=== PATIENT | female | born 1975 | race African-American/Black ===

== ENCOUNTER 2025-03-12 15:04 | Emergency (ER) | payer BC, SELFPAY ==
--- OUTSIDE RECORDS SUMMARY | 2020-04-30 05:00 | XMS_ITS | Continuity of Care Document ---
Author Organization [facility] Address [address] [place] [address] Phone Care Team Providers Care Electrical Discharge Machine Operator Name Role Phone North Tomlinson MD Unavailable Unavailable Procedures Procedure Date TISSUE EXAM BY PATHOLOGIST COLONOSCOPY, REMOVAL SNARE TECH 020 Advance Directives Directive Yes / No Effective Date File Name No Information Encounters Encounter Description Practice Location Reason(s) For Visit Diagnoses Date Provider Providers Copied on Encounter [facility], [address], [place], [place], [id number], tel:[phone] [facility] No Information Bushra Kat. [address] [place] [address], [id number] , . tel:[phone] [facility], [address], [place], [place], [id number], tel:[phone] [facility] No Information Bushra Kat. [address] [place], [place], [id number] , . tel:[phone] Referring Provider: Florin Red [address] [address], [place], [address]. tel:[phone] [facility], [address], [place], [place], [id number], tel:[phone] [facility] [place] No Information Bushra Kat. [address] [place] [address], [id number] , . tel:[phone] Referring Provider: Wally Red5 [facility] [address], [place], [address]. tel:[phone] Family History Family Member Type Diagnosis Age At Onset No Information Payers Payer name Insurance type Covered green party ID Authoriza tion(s) No Information Social History [...]
--- NOTE | ~2025-03-12 | XR_ITS ---
EXAMINATION: XR chest 1V portable COMPARISON: No comparisons available. HISTORY: HIGH BLOOD PRESSURE FINDINGS: The lungs are clear, no effusion. No pneumothorax. Heart is normal size. Mediastinal and hilar contours are within normal limits. Bony thorax no acute abnormality. Miscellaneous: None Impression: No acute cardiopulmonary abnormality. Reviewed, dictated and finalized at location A. Impression: No acute cardiopulmonary abnormality.
--- OUTSIDE RECORDS SUMMARY | 2025-03-12 09:30 | XMS_ITS | Encounter Summary ---
Author Organization [facility] Address [address] [place] [address] Care Team Providers Care Wall Washer Name Role Phone Virginia Carlson MD Primary Care Provider [phone] Reason for Referral * Consultation (Routine) - Pending Review Specialty Diagnoses / Procedures Referred By Contheidi t Referred To Contact Cardiology Diagnoses Abnormal EKG Sofy Titus NP [address] [place] [address] Phone: tel: [facility] at [address] [place] [address] Phone: tel: fax: Referral ID Status Reason Start Date Expiration Date Visits Requested Visits Authorized [id number] Pending Review Specialty Services Required 03/12/2025 04/11/2026 1 1 Question Answer Please select the performing region: [facility] [[id number]] Please select the performing department: [facility] [[id number]] # of visits: 1 Reason for Visit * Reason Comments Hypertension Would like to discus s switching dosage. BP highest has been around 177/106. Started running higher around Friday. 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 Encounter Details Date Type Department Care Team (Late Contact Info) Description 03/12/2025 9:30 AM CDT Office Visit [facility] [place] [id number] Sofy Titus NP [address] [facility] [address] [place] [address] Elevated blood pressure reading in office with diagnosis of hypertension (Primary Dx); Other chest pain; Abnormal EKG Social History Tobacco Use Types Packs/Day Years Used Date Smoking Tobacco: Never Smokeless Tobacco: Never Tobacco Cessation:Counseling Given: Not Answered Alcohol Use Standard Drinks/Week Comments No 0 (1 standard drink = 0.6 oz pur e alcohol) AUDIT-C Answer Date Recorded Frequency of Alcohol Consumption Not on file 12/27/2022 Q2: How many drinks containi ng alcohol do you have on a typical day when you are drinking? 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 [employer] Not on file Not o n file Not on file documented as of this encounter Last Filed Vital Signs Vital Sign Reading Time Taken Comments Blood Pressure 152/82 03/12/2025 9:25 AM CDT Pulse 92 03/12/2025 9:25 AM CDT Temperature 36.6 C (97.9 F) 03/12/2025 9:25 AM CDT Respiratory Rate 18 03/12/2025 9:25 AM CDT Oxygen Saturation 96% 03/12/2025 9:25 AM CDT Inhaled Oxygen Concentration - - Weight 121.5 kg (267 lb 12.8 oz) 03/12/2025 9:25 AM CDT Height 162.6 cm (5' 4) 03/12/2025 9:25 AM CDT Body Mass Index 45.97 03/12/2025 9:25 AM CDT documented in this encounter Patient Instructions * Patient Instructions* Sofy Titus NP - 03/12/2025 9:30 AM CDT --Would recommend ER for further cardiac evaluation --Discussed with patient that at any time her symptoms worsen would recommend 911 or headed to the nearest emergency room --Referral to cardiology placed --Discussed with patient to monitor her blood pressure and to write these blood pressures down to show to her primary care doctor documented in this encounter Plan of Treatment Scheduled Referrals Name Type Priority Associated Diagnoses Order Schedule Ambulatory referral to Cardiology Outpatient Referral Routine Abnormal EKG Expected: 05/12/2025 (Approximate), Expires: 03/12/2026 documented as of this encounter Procedures Procedure Name Priority Date/Time Associated Diagnosis Comments ECG 12-LEAD Routine 03/12/2025 9:44 AM CDT Other chest pain documented in this encounter Results * ECG 12 lead (03/12/2025 9:44 AM CDT) Sofy Titus HAND ALTERATIONS SEAMSTRESS ECG ORDERABLES Final Result documented in this encounter Visit Diagnoses Diagnosis Elevated blood pressure reading in office with diagnosis of hypertension- Primary Other chest pain Abnormal EKG Nonspecific abnormal electrocardiogram (ECG) (EKG) documented in this encounter Discontinued Medications Medication Sig Discontinue Reason Start Date End Da te diclofenac sodium (VOLTAREN) 1 % gel Apply 2 g topically 4 (four) times a day Patient Reported 07/07/2024 03/12/2025 documented as of this encounter Care Teams Wall Washer Relationship Specialty Start Date End Date Virginia Carlson MD [address] [place] [address], [place] [address] PCP - General 09/20/16 documented as of this encounter
[2025-03-12 15:09] VITALS: BP 152/94; PULSE 79; RESP 16; TEMP 36.4; O2SAT 100
[2025-03-12 19:25] VITALS: PULSE 70; RESP 16; O2SAT 100
[2025-03-12 19:31] VITALS: BP 166/96; PULSE 72; RESP 17; O2SAT 100
--- NOTE | 2025-03-12 19:33 | ECG_ITS ---
Test Date: 2025-03-12 20:03:55 Measurements Intervals [place] Rate: 67 P: 44 NH: 178 QRS: -9 QRSD: 90 T: 30 QT: 384 QTc: 406 Interpretive Statements SINUS RHYTHM MODERATE VOLTAGE CRITERIA FOR LVH, CONSIDER NORMAL VARIANT [MEETS CRITERIA IN ONE OF: R(aVL), S(V1), R(V5), R(V5/V6)+S(V1)] BORDERLINE ECG No previous ECG available for comparison Electronically Signed On 03-13-2025 08:21:26 CDT by Prosper Coles M.D.
--- OUTSIDE RECORDS SUMMARY | 2025-03-12 19:47 | XMS_ITS | Clinical Summary ---
Author Organization [facility] Address [address] [place] [address] Phone Care Team Providers Care Biological Inspector Name Role Phone Virginia Carlson MD Primary Care Provider [phone] Allergies Active Allergy Reactions Criticality Noted Date Comments Penicillins Hives,Itching,Nausea and Vomiting High 08/29/2017 Reaction: Nausea, Vomiting, , Medications labetalol HCl (LABETALOL ORAL) Take 200 mg by mouth 2 times daily. Active rosuvastatin calcium (ROSUVASTATIN ORAL) Take by mouth daily. Active olmesartan (BENICAR) 20 mg tablet Take 20 mg by mouth daily. Active cholecalciferol, Vitamin D3, 125 mcg (5,000 unit) Capsule Take 5,000 Units by mouth 2 times daily. Active Active Problems No known active problems Family History Medical History Relation Name Comments Hypertension Brother Hypertension Mother Hypertension Sister Relation Name Status Comments Brother Mother Sister Social History Tobacco Use Types Packs/Day Years Used Date Smoking Tobacco: Never Smokeless Tobacco: Never Tobacco Cessation:Counseling Given: Not Answered Alcohol Use Standard Drinks/Week Comments Never 0 (1 standard drink = 0.6 oz pur e alcohol) Comments Unknown Sex and Gender Information Value Date Recorded Sex Assigned at Not on file Legal Sex Female 2:12 PM CDT Gender Identity Not on file Sexual Orientation Not on file Last Filed Vital Signs Vital Sign Reading Time Taken Comments Blood Pressure 120/82 05/27/2022 1:09 PM [employer] Pulse - - Temperature - - Respiratory Rate - - Oxygen Saturation - - Inhaled Oxygen Concentration - - Weight 118.8 kg (261 lb 12.8 oz) 05/27/2022 1:09 PM [employer] Height 160 cm (5' 3) 05/27/2022 1:09 PM [employer] Body Mass Index 46.38 05/27/2022 1:09 PM [employer] Plan of Treatment Health Maintenance Due Date Last Done Comments HEPATITIS B VACCINES (1 of 3 - 19+ 3-dose series) 1992 HPV/Cotest (21-29) 1994 CERVICAL CANCER SCREENING 2003 HPV/Cotest (30-65) 2003 PAP SMEAR 2003 COLORECTAL SCREENING 2018 Colorectal Cancer Screening 2018 FIT-DNA Q 3 years 2018 FIT/FOBT Q 1 year 2018 Flex Sig/CT Colonography Q 5 years 2018 BREAST CANCER SCREENING 08/09/2020 08/09/19 20, 01/17/2018, 12/16/2014 ZOSTER VACCINE (1 of 2) 2023 INFLUENZA VACCINE (#1) 2025 COVID-19 Vaccine (2024- season) 2025, 09/11/2020 DTAP/TDAP/TD VACCINES (3 - T d or Tdap) 03/04/2029 03/04/2019, 01/27/2004 Insurance [facility] BLUE ACCESS CHOICE Care Teams Biological Inspector Relationship Specialty Start Date End Date Virginia Carlson MD [facility] [facility] [address], [place] [address] PCP - General Internal Medicine 01/21/22
--- OUTSIDE RECORDS SUMMARY | 2025-03-12 19:47 | XMS_ITS | Encounter Summary ---
Author Organization [facility] Address [address] [place] [address] Care Team Providers Care Culture Room Worker Name Role Phone Virginia Carlson MD Primary Care Provider [phone] Reason for Visit * Reason Onset Date Comments Hypertension 03/12/2025 Encounter Details Date Type Department Care Team (Late st Contact Info) Description 03/12/2025 Nurse Triage [facility] Primary Care at [facility] - [address] [place] [address] Virginia Carlson MD [address] [place] [address] Social History Tobacco Use Types Packs/Day Years Used Date Smoking Tobacco: Never Smokeless Tobacco: Never Alcohol Use Standard Drinks/Week Comments No 0 [...] on file Legal Sex Female 11:57 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 Pt states she has been taking the Olmesartan 40 mg daily inthe morning and Labetalol 100 mg twice daily, as prescribed, drinking water, jesenia tea, no added salt to foods - denies CP, SOB, dizziness, palpitations, visual changes, pain/numbness/tingling in arms or face, speech difficulty, swelling of extremities. Calling for advice. Pt is alert, appropriatein conversation, does not sound to be in distress over the phone. microsoft crm developer briefly reviewed pt's chart, office visit note from 03/07/25, med list - scheduled appt for pt to be seen at in [place] in the morning at 0930, home care instructions given. Pt voices understanding, agrees with plans, states appreciation of microsoft crm developer assistance. Advised to call back with any further questions, concerns, worsening symptoms. Disposition See Physician Within 24 Hours Reason for Disposition Systolic BP >= 180 OR Diastolic >= 110 Protocols Used Blood Pressure - Njuk-Mnasb-GM * Telephone Encounter - Zofia Latham RN - 03/12/2025 12:08 AM CDT Regarding: Elevated blood pressure ----- Message from Modesta Coronado sent at 03/12/2025 12:05 AM CDT ----- Patient calling about elevated blood pressure that has been present for 2 to 3 days. Current 160/106 in right arm, 177/99 in left arm. Has questions. documented in this encounter Plan of Treatment Not on file documented as of this encounter Visit Diagnoses Not on filedocumented in this encounter Care Teams Culture Room Worker Relationship Specialty Start Date End Date Virginia Carlson MD [address] [address] PCP - General 09/20/16 documented as of this encounter
--- OUTSIDE RECORDS SUMMARY | 2025-03-12 19:47 | XMS_ITS | Clinical Summary ---
Author Organization [facility] Address [address] [place] [address] Phone Care Team Providers Care Towboat Operator Name Role Phone Virginia Carlson MD Primary Care Provider [phone] Allergies Active Allergy Reactions Criticality Noted Date Comments Penicillins Hives 09/11/2017 Medications labetalol (NORMODYNE) 200 MG Tablet Take 200 mg by mouth 2 times daily. Active METFORMIN HCL ER, MOD, PO Take 750 mg by mouth 2 times daily (with meals). This RX is for Metformin SR. Active Aspirin 81 MG Tablet Take 81 mg by mouth daily. Active Vitamin B-6 (PYRIDOXINE) 100 MG Tablet Take by mouth. A ctive Vit-Fe Fumarate-FA ( VITAMIN PO) Take by mouth. Act juanito clindamycin (CLEOCIN) 150 MG Capsule Take 150 mg by mouth every 8 hours. Active oxyCODONE-aceta minophen (PERCOCET) 5-325 MG Tablet Take 1 Tab by mouth every 4 hours as needed for Pain. Active HYDROcodone-dhiraj taminophen (NORCO) 5-325 MG Tablet Take 1 Tab by mouth every 4 hours as needed for Pain. Active Social History Tobacco Use Types Packs/Day Years Used Date Smoking Tobacco: Never Smokeless Tobacco: Never Alcohol Use Standard Drinks/Week Comments No 0 (1 standard drink = 0.6 oz pur e alcohol) Comments No Sex and Gender Information Value Date Recorded Sex Assigned at Not on file Legal Sex Female 8:56 PM CDT Gender Identity Not on file Sexual Orientation Not on file Last Filed Vital Signs Vital Sign Reading Time Taken Comments Blood Pressure 122/75 09/11/2017 10:29 PM CDT Pulse 84 09/11/2017 10:29 PM CDT Temperature 36.4 C (97.6 F) 09/11/2017 8:58 PM CDT Respiratory Rate 18 09/11/2017 10:29 PM CDT Oxygen Saturation 100% 09/11/2017 10:29 PM CDT Inhaled Oxygen Concentration - - Weight 118.4 kg (261 lb) 09/11/2017 8:58 PM CDT Height 160 cm (5' 3) 09/11/2017 8:58 PM CDT Body Mass Index 46.23 09/11/2017 8:58 PM CDT Plan of Treatment Not on file Insurance [facility] Care Teams Towboat Operator Relationship Specialty Start Date End Date Virginia Carlson MD [facility] [address] [id number] PCP - General Internal Medicine 09/11/17
--- OUTSIDE RECORDS SUMMARY | 2025-03-12 19:47 | XMS_ITS | Clinical Summary ---
Author Organization [facility] Address [address] [place] [address] Care Team Providers Care Title [employer] Name Role Phone Virginia Carlson MD Primary Care Provider [phone] Allergies Active Allergy Reactions Criticality Noted Date Comments Penicillins Nausea only,Vomiting,Hives,Itch ing,Nausea And Vomiting High 08/29/2017 Reaction: Nausea, Vomiting, , Reaction: Nausea, Vomiting, , Medications cholecalcifero l (VITAMIN D-3) 5,000 unit capsule Take 1 capsule (5,000 Units total) by mouth 2 (two) times a day Active atorvastatin (LIPITOR) 20 mg tablet TAKE 1 TABLET(20 MG) BY MOUTH DAILY 90 tablet 1 01/11/20 25 Active olmesartan (BENICAR) 40 mg tablet TAKE 1 TABLET(40 MG) BY MOUTH DAILY 90 tablet 1 02/23/20 25 Active labetaloL (NORMODYNE,TRA NDATE) 100 mg tablet Take 1 tablet (100 mg total) by mouth 2 (two) times a day 60 tablet 1 03/08/20 25 Active olmesartan (BENICAR) 40 mg tablet Take 1 tablet (40 mg total) by mouth daily 90 tablet 1 02/18/20 24 025 Discontinued diclofenac sodium (VOLTAREN) 1 % gel Apply 2 g topically 4 (four) times a day 150 g 1 07/07/19 25 025 Discontinued(Miguel kirk Reported) labetaloL (NORMODYNE,TRA NDATE) 100 mg tablet Take 1 tablet (100 mg total) by mouth 2 (two) times a day 60 tablet 1 01/12/20 25 025 Discontinued(Re order) Active Problems Problem Noted Date Diagnosed Date Skin cyst 10/27/2024 Assessment & Plan (10/27/2024 3:36 PM CDT): This is the most likely cause for the skin lesion behind her right ear. Okay to watch over time since has benign characteristics. Discussed the ABCD findings of skin cancers. Discussed possible evaluation with ultrasound or CT scan imaging. Discussed possible referral to a plastic surgeon for removal. Call if worse or persistent symptoms. Left arm pain 10/27/2024 Assessment & Plan (10/27/2024 3:34 PM CDT): Most consistent with soreness in the muscles. Advised treatment with topical creams as needed. Call if worse or persistent symptoms. Morbid obesity with BMI of 40.0-44.9, adult 09/22 Assessment & Plan (03/09/2025 5:35 AM CDT): Patient to decreased intake and increase activity. Assessment & Plan (10/27/2024 4:40 PM CDT): Patient with comorbid hypertensive kidney disease, mixed hyperlipidemia, prediabetes, neuropathy. Encouraged healthy diet and exercise. Assessment & Plan (10/17/2024 4:12 PM CDT): Patient has had decreased intake and increase activity. Other specified anemias 10/17/2024 Assessment & Plan (10/17/2024 4:26 PM CDT): Will continue to monitor Chronic pain of right thumb 08/31/2024 Assessment & Plan (10/17/2024 4:31 PM CDT): Patient to use diclofenac 1% gel BID PRN Assessment & Plan (08/31/2024 8:52 AM CDT): Will order an xray of the right thumb to rule out fracture. Patient to take tylenol for pain as needed Patient may use a cold pack ever 2-3 hours for soreness. Rest and avoid activity such as bending, twisting or lifting. Support your thumb with compression while sleeping to prevent worsening pain. Low mean corpuscular volume (MCV) 09/09/2023 Assessment & Plan (07/10/2024 2:21 PM CAR UNLOADER): Will continue to monitor. No iron at this time. Prediabetes 07/21/2022 Assessment & Plan (03/09/2025 5:38 AM CDT): Decrease intake of pasta, potatoes, breads, rice and sweets Assessment & Plan (10/27/2024 3:35 PM CDT): You are in the prediabetes range. Important to work on diet and exercise to prevent progression to diabetes. Reviewed recent hemoglobin A1c testing at 5.8%. Assessment & Plan (10/17/2024 4:24 PM CDT): Continue to decrease intake of pasta, potatoes, breads, rice and sweets Assessment & Plan (07/10/2024 2:18 PM CAR UNLOADER): Decrease intake of pasta, potatoes, breads, rice and sweets Assessment & Plan (05/21/2023 9:46 PM CAR UNLOADER): Decrease intake of pasta, potatoes, breads, rice and sweets Assessment & Plan (12/28/2022 3:14 PM CDT): Decrease intake of pasta, potatoes, breads, rice and sweets Assessment & Plan (07/21/2022 9:02 PM CAR UNLOADER): Decrease intake of pasta, potatoes, breads, rice and sweets Infected sebaceous cyst of skin 07/07/2021 Assessment & Plan (07/07/2021 9:53 PM CAR UNLOADER): Continue Bactrim DS twice a day History of vitamin D deficiency 07/07/2021 Assessment & Plan (07/07/2021 10:07 PM CAR UNLOADER): Will check Vitamin d level Neuropathy 07/07/2021 Assessment & Plan (12/28/2022 3:13 PM CDT): Will refer to neurology for right foot numbness and pelvic numbness. Patient may need repeat MRI Assessment & Plan (07/07/2021 10:05 PM CAR UNLOADER): Continue with EMG/Nerve conduction study Internal nasal lesion 11/09/2020 Assessment & Plan (11/09/2020 3:52 PM CDT): Patient has small lesion in right nostril that is tender. Will refer patient to Dr. Colvin, ENT, for further evaluation and management. Will monitor. Stage 3a chronic kidney disease 12/18/2019 Assessment & Plan (03/09/2025 5:38 AM CDT): Avoid taking NSAIDs -Ibuprofen, Aleve and Naprosyn. Also avoid being dehydrated Assessment & Plan (10/27/2024 3:36 PM CDT): You have decreased renal function that is called chronic kidney disease. This is ok for your age and medical conditions and will be followed over time with lab testing. Avoid anti-inflammatory meds called NSAIDs such as ibuprofen/aleve since these can affect the kidneys. OK to take Tylenol/acetaminophen as needed. Assessment & Plan (10/17/2024 4:25 PM CDT): Patient to avoid taking NSAIDs -Ibuprofen, Aleve and Naprosyn. Also avoid being dehydrated Assessment & Plan (07/10/2024 2:06 PM CAR UNLOADER): Avoid taking NSAIDs -Ibuprofen, Aleve and Naprosyn. Also avoid being dehydrated Assessment & Plan (05/21/2023 9:50 PM CAR UNLOADER): Avoid taking NSAIDs -Ibuprofen, Aleve and Naprosyn. Also avoid being dehydrated Assessment & Plan (07/13/2020 5:31 PM CAR UNLOADER): Last creatinine 1.15 and eGFR 57 on 03/29/2020. Continue with current treatment regimen; avoid NSAIDs and stay hydrated. Continue with good lipid and BP control. Will monitor. Assessment & Plan (04/30/2020 2:17 PM CAR UNLOADER): Last creatinine 07/19 and eGFR 51 on 07/23/2019. Continue with current treatment regimen. Continue with good BP control. Will monitor. Assessment & Plan (12/18/2019 12:40 PM CDT): Talked to patient about decreasing intake of NSAIDS and increase hydration Vitamin D deficiency 12/17/2019 Assessment & Plan (07/10/2024 2:35 PM CAR UNLOADER): Will have patient to check vitamin d level Assessment & Plan (05/21/2023 9:49 PM CAR UNLOADER): Will check Vitamin d level Assessment & Plan (12/28/2022 3:14 PM CDT): Will check Vitamin d level Assessment & Plan (03/09/2020 5:36 PM CDT): Last Vitamin D level 16 on 11/23/18. Continue treatment with Vitamin D supplements. Will monitor. Assessment & Plan (12/17/2019 7:30 AM CDT): Will restart vitamin d. Will also check vitamin d level Plantar fasciitis 12/17/2019 Assessment & Plan (03/09/2020 5:36 PM CDT): Stable. Continue current treatment - daily home exercises. Notify clinic for any new or worsening symptoms. Will continue to monitor. Assessment & Plan (12/17/2019 7:32 AM CDT): Patient to perform exercises daily Abnormal Pap smear of cervix 06/05/2019 Overview (09/09/2023): 2019 endometrial cells on Pap. EMB done and benign. 2021: Pap and HPV both negative. Assessment & Plan (06/05/2019 7:11 AM CAR UNLOADER): Follow up with MAIL ROOM Mixed hyperlipidemia 06/03/2019 Assessment & Plan (10/27/2024 3:35 PM CDT): Up-to-date with lipid lab monitoring. Continue atorvastatin. Discussed that the timing of this medicine does not matter when it is taken during the day. Assessment & Plan (10/17/2024 4:20 PM CDT): Continue Rosuvastatin 20mg every day Assessment & Plan (07/10/2024 2:10 PM CAR UNLOADER): Continue Rosuvastatin 20mg every day Assessment & Plan (05/21/2023 9:45 PM CAR UNLOADER): Continue Rosuvastatin 20mg QHS Assessment & Plan (12/28/2022 2:59 PM CDT): Continue Rosuvastatin 20mg QHS Assessment & Plan (07/21/2022 8:46 PM CAR UNLOADER): Continue Rosuvastatin 20mg a day Assessment & Plan (07/07/2021 9:50 PM CAR UNLOADER): Continue Rosuvastatin 20mg a day Assessment & Plan (11/09/2020 1:37 PM CDT): Continue current treatment - rosuvastatin 20 mg daily. Encouraged a low cholesterol diet and regular cardiovascular exercise as tolerated. Will continue to monitor. Assessment & Plan (07/13/2020 10:54 AM CAR UNLOADER): Continue current treatment - rosuvastatin 20 mg daily. Encouraged a low cholesterol diet and regular cardiovascular exercise as tolerated. Will continue to monitor. Assessment & Plan (03/09/2020 5:41 PM CDT): Continue current treatment - Crestor 20 mg qhs. Encouraged a low cholesterol diet and regular cardiovascular exercise as tolerated. Will continue to monitor. Assessment & Plan (12/17/2019 7:31 AM CDT): Continue current therapy Assessment & Plan (06/03/2019 6:21 PM CAR UNLOADER): Start Crestor 20 mg. Encouraged a low cholesterol diet and regular cardiovascular exercise as tolerated. Will recheck labs. Will continue to monitor. PCOS (polycystic ovarian syndrome) 06/03/2019 Assessment & Plan (06/03/2019 2:00 PM CAR UNLOADER): Stable. Continue current management. Continue to follow with Dr. Holland. Hypertension, renal disease, stage 1-4 or unspecified chronic kidney disease 06/03/2019 Assessment & Plan (10/27/2024 3:34 PM CDT): Discussed blood pressure goal of <130/80. Try taking the olmesartan in the evening and labetalol twice daily for best 24 hour blood pressure control. Call if blood pressure stays greater than 130/80. Assessment & Plan (10/17/2024 4:22 PM CDT): Repeat blood pressure was elevated. Patient does not want to adjust medication she wants to continue labetalol 100 mg twice a day. She is going to take medicine daily. We will continue olmesartan 40 mg once a day. Assessment & Plan (07/10/2024 2:13 PM CAR UNLOADER): Take Labetalol 100mg one tablet BID and Olmesartan 40mg every day. Repeat was 130/86. Will adjust medication at next appointment if still elevated. Assessment & Plan (05/21/2023 9:44 PM CAR UNLOADER): Take Labetalol 100mg one tablet BID Assessment & Plan (12/28/2022 2:58 PM CDT): Continue Labetalol 100mg one tablet BID and Olmesartan 40mg a day Assessment & Plan (07/21/2022 8:45 PM CAR UNLOADER): Continue Labetalol 100mg one tablet BID and Olmesartan 40mg a day Assessment & Plan (07/07/2021 9:51 PM CAR UNLOADER): Continue Labetalol 100mg Twice a day. Assessment & Plan (11/09/2020 3:48 PM CDT): BP today is 120/88. Continue current treatment -- labetalol 100 mg daily and olmesartan 40 mg daily. Encourage low-sodium diet and regular exercise. Will monitor. Assessment & Plan (09/21/2020 4:59 PM CDT): BP 100/80. Continue current treatment -- labetalol 100 mg daily and olmesartan 40 mg daily. Encourage low-sodium diet and regular exercise. Will monitor. Assessment & Plan (07/13/2020 5:34 PM CAR UNLOADER): BP today is 100/80. Continue current treatment -- labetalol 100 mg daily and olmesartan 40 mg daily. Encourage low-sodium diet and regular exercise. Will monitor. Assessment & Plan (03/09/2020 5:42 PM CDT): BP today 120/80. Continue current treatment -- Labetalol 100 mg BID and Olmesartan 40 mg daily. Encourage low-sodium diet and regular exercise. Will monitor. Assessment & Plan (12/17/2019 7:30 AM CDT): Stable on current therapy Assessment & Plan (06/03/2019 6:26 PM CAR UNLOADER): BP today 131/85; repeat at exam 104/80. Hold Clonidine 0.1 mg, and Labetalol 200 mg; continue taking Olmesartan 20 mg and HCTZ 25 mg. Check BP twice daily. If it trends upwards, call the office and restart medications. Encourage low-sodium diet and regular exercise. Will monitor. Bilateral carpal tunnel syndrome 06/03/2019 Assessment & Plan (06/03/2019 6:23 PM CAR UNLOADER): Start using bilateral cock-up splints at night. Will monitor. Menopause ovarian failure 05/15/2016 Dysmenorrhea 05/15/2016 Resolved Problems Problem Noted Date Diagnosed Date Resolved Date Cervical lymphadenopathy 10/27/202412/2024 Numbness of toes 07/10/2024 10/27/2024 Assessment & Plan (07/10/2024 2:35 PM CAR UNLOADER): Will have patient to see neurology Acute bilateral ankle pain 07/10/2024 0 10/27/2024 Assessment & Plan (07/10/2024 2:36 PM CAR UNLOADER): Will refer patient to orthopaedics BMI 40.0-44.9, adult 12/28/2022 025 Assessment & Plan (05/21/2023 9:39 PM CAR UNLOADER): Decrease intake and increase activity Assessment & Plan (12/28/2022 2:55 PM CDT): Decrease intake and increase activity Morbid obesity with BMI of 40.0-44.9, adult 07/21/2022 10/27/2024 Assessment & Plan (10/17/2024 4:28 PM CDT): Patient to decrease intake and increase activity Assessment & Plan (05/21/2023 9:40 PM CAR UNLOADER): Decrease intake and increase activity Assessment & Plan (12/28/2022 2:53 PM CDT): Decrease intake and increase activity Assessment & Plan (07/21/2022 8:44 PM CAR UNLOADER): Decrease intake and increase activity Body mass index 40.0-44.9, adult ([facility]) 07/12/2022 10/27/2024 Assessment & Plan (10/17/2024 4:28 PM CDT): Paient to decrease intake and increase activity Assessment & Plan (07/21/2022 8:43 PM CAR UNLOADER): Decrease intake and increase activity Routine medical exam 07/07/2021 025 Assessment & Plan (07/07/2021 9:49 PM CAR UNLOADER): Will obtain labs Vaginal irritation 07/13/2020 Assessment & Plan (12/28/2022 3:17 PM CDT): Follow up with MAIL ROOM. Start Diflucan 150mg a day Assessment & Plan (07/13/2020 5:30 PM CAR UNLOADER): Patient to use non-perfumed soap; recommended Basis soap. Will monitor. Skin rash 03/09/2020 10/27/2024 Assessment & Plan (03/09/2020 5:39 PM CDT): Patient with rash on bilateral forearms. Start using SPF 50+ on bilateral forearms before going out in the sun. Use triamcinolone 0.1% topically BID for 2 weeks; do not use for more than 2 weeks at a time then take a break for 2 weeks. Will refer patient to Dr. Chacha Lux, Dermatology, for further evaluation and management. Will monitor. Obesity (BMI 35.0-39.9 without comorbidity) 06/27/2019 10/27/2024 Assessment & Plan (11/09/2020 3:50 PM CDT): Body mass index is 35.98 kg/m . Patient gained 8 lbs since last visit. Continue monitoring diet and staying active; patient encouraged to continue Weight Watchers. Continue regular walking. Patient's goal is below 200 lbs. Will monitor. Localized edema 06/03/2019 10/27/2024 Assessment & Plan (07/10/2024 2:37 PM CAR UNLOADER): Will check BNP level Assessment & Plan (06/03/2019 2:03 PM CAR UNLOADER): Patient has been stable. Continue current treatment with compression, elevation, HCTZ 25 mg, and limiting sodium intake. Will continue to monitor Acute non-recurrent frontal sinusitis 06/03/2019 10/27/2024 Assessment & Plan (06/03/2019 6:18 PM CAR UNLOADER): Continue Coricidin as directed for symptoms. If they do not resolve in the next 2 weeks, call the office. Will monitor. Benign hypertension 11/06/2013 10/28/19 Overview (09/27/2016): BENIGN HYPERTENSION Encounters Date Type Department Care Team Description 03/12/2025 9:30 AM CDT Office Visit [facility] Care at [address] [phone] Sofy Titus NP Elevated blood pressure reading in office with diagnosis of hypertension (Primary Dx); Other chest pain; Abnormal EKG 03/12/2025 Nurse Triage [facility] Care at [facility] - [address] [place] [phone] Virginia Carlson MD 03/07/2025 3:30 PM CDT Office Visit [facility] Care at [facility] - [address] [place] [phone] Virginia Carslon MD Mixed hyperlipidemia (Primary Dx); Hypertension, renal disease, stage 1-4 or unspecified chronic kidney disease; Stage 3a chronic kidney disease (HCC); Prediabetes; Morbid obesity with BMI of 40.0-44.9, adult (HCC); Anemia, unspecified type; Anemia due to other cause, not classified from Last 3 Months Immunizations Immunization Administration Dates Next Due Hep A, Adult 03/14/2006 Influenza, Unspecified 03/07/2025(Deferr ed: Patient decision - REFUSE) Moderna SARS-CoV-2 Monovalen t Vaccination (12+ YRS) 10/13/2020,09/11/2020 Tdap 03/04/2019,01/27/2004 ZOSTER Recombinant 06/24/2024 Surgical History Surgery Date Site/Laterality Comments DILATION AND CURETTAGE OF UTERUS 11/20/2017 Done with a hysteroscopy for infertility by Dr. De Jesus at [place]. HYSTEROSCOPY 11/20/2017 With D&C and endometrial polypectomy (path report not available) by Dr. De Jesus at [facility] DIAGNOSTIC LAPAROSCOPY 11/20/2017 For dyspareunia and infertility.Peritoneal biopsies for possible endometriosis (path not available).Tubes blocked but open on [facility] 01/2018. Medical History Medical History Date Comments Hypertension Diabetes mellitus (HCC) Asthma 1993; no longer an issue Family History Medical History Relation Name Comments Hypertension Brother Herbert Flores, Jr. Hypertens ion; Hypertension Father Herbert Flores, Sr. Kidney disease Father Herbert Flores, Sr. Kidney failure Father Herbert Flores, Sr. Renal f ailure; Cause of : Renal failure Arthritis Mother Talya Flores Hypertension Mother Talya Flores Hypertension ; Hypertension Sister Maricruz Flores Relation Name Status Comments Brother Herbert Flores, . Father Herbert Flores, Sr. 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 Hx of PCOS. Last Filed Vital Signs Vital Sign Reading [...] Mass Index 45.97 03/12/2025 9:25 AM CDT Plan of Treatment Health Maintenance Due Date Last Done Comments Cervical Cancer Screening 07/06/2022 07/06/2021 Regular Well Visit/Exam 18-64 12/28/2023 12/27/2022, 07/06/2021, 03/04/2019 Zoster Vaccine (2 of 2) 08/19/2024 06/24/2024 Covid-19 Vaccine ( season) 2025 07/01/2021, 10/13/2020, 09/11/2020 Influenza Vaccine (#1) 2025 Breast Cancer Screening-Mammogram 07/06/2025 07/06/2024, 08/09/2019, 01/17/2018, Additional history exists Depression Screening 03/07/2026 03/07/2025, 10/04/2024, 06/24/2024, Additional history exists DTaP/Tdap/Td Vaccine (3 - Td or Tdap) 03/04/2029 03/04/2019, 01/27/2004 Colon Cancer Screening-Colonoscopy 04/25/2030 04/25/2020 Hepatitis B Screening Completed 08/31/2024 Hepatitis C Screening Completed 08/31/2024 Pneumococcal vaccine <65 Aged Out No longer eligible based on patient's age to complete this topic Procedures Procedure Name Priority Date/Time Associated Diagnosis Comments ECG 12-LEAD Routine 03/12/2025 9:44 AM CDT Other chest pain HEPATITIS C ANTIBODY Routine 08/31/2024 10:03 AM CDT Need for hepatitis C screening test SCREENING MAMMOGRAM BILATERAL W KWAME Schedule Routine, Read Routine (OP Routine) 07/06/2024 3:50 PM CAR UNLOADER Encounter for screening mammogram for malignant neoplasm of breast PAP AND HIGH RISK HPV, REFLEX TO GENOTYPING Routine 07/06/2021 12:18 PM CAR UNLOADER Cervical cancer screening COLONOSCOPY Routine 04/25/2020 from Last 3 Months or Most Recently Relevant to Health Maintenance Results * ECG 12 lead (03/12/2025 9:44 AM CDT) Sofy Titus NP ECG ORDERABLES Final Result * Hepatitis C antibody Blood (08/31/2024 10:03 AM CDT) Hep C Ab Nonreactive Nonreactive Comment: Interpretive Data Nonreactive: Antibodies to HCV not detected. Does NOT exclude the possibility of recent exposure to HCV. Equivocal: Equivocal for HCV antibodies. Supplemental molecular testing will be automatically performed to determine infection status in accordance with current CDC screening recommendations. Reactive: Positive for HCV antibodies. This may represent current or past HCV infection. Supplemental molecular testing will be automatically performed to determine current infection status in accordance with current CDC screening recommendations. Interpretive data was last revised on 2019. Blood 08/31/2024 10:0 3 AM CDT 08/31/2024 5:08 PM CDT Virginia Carlson MD LAB MICROBIOLOGY - GENERAL ORDERABLES Final Result Performing Organization Address City/State/[facility] Co nm Phone Number [facility] [id number] Department [place] [address] * Screening Mammogram Bilateral W Kwame (07/06/2024 3:50 PM CAR UNLOADER) Anatomical Region Laterality Modality Breast Bilateral Mammography 07/07/2024 10:1 6 AM CAR UNLOADER Impressions 07/07/2024 10:16 AM CAR UNLOADER No evidence of malignancy in either breast. FINAL ASSESSMENT: BI-RADS Category 1: Negative. RECOMMENDATION: Recommend return for annual screening mammogram in 12 months. Electronically signed by: Violet Brush M.D. Narrative 07/07/2024 10:16 AM CAR UNLOADER EXAMINATION: BILATERAL SCREENING MAMMOGRAM COMPARISON: Prior mammograms from 08/09/2019, 01/17/2018, and 12/16/2014 TECHNIQUE: Full-field 2D and digital breast tomosynthesis (DBT) images were obtained. CAD was utilized. BREAST PARENCHYMAL COMPOSITION: There are scattered areas of fibroglandular density. FINDINGS: There is no suspicious mass, calcification, or distortion in either breast. Stable mammographic appearance of BOTH breasts. Virginia Carlson MD IMG MAMMO PROCEDURES Final Result * Pap and High Risk HPV, reflex to Genotyping (07/06/2021 12:18 PM CAR UNLOADER) Swab (Pap test) 07/06/2021 1 2:18 PM CAR UNLOADER 07/06/2021 12:18 PM CAR UNLOADER Narrative PATHOLOGY CH - 07/11/2021 4:37 PM CAR UNLOADER [facility] Department of Pathology [address] [place] [address] Final Report with Addendum Note to Patients: This report may contain a detailed description of human tissue sent by a health care provider to the laboratory for pathologic evaluation. The content of this report is essential for diagnosis and may provide important critical findings. This information may be unfamiliar to patients to review without a medical professional present. It is advised that the patient review this report in the presence of a health care provider who can answer questions and explain the details. Patient Name: PATT BARNEY Address: [address] [place] [address] [place] [address] Gender: F : 1975 (Age: 46) Service: Laboratory Location: Lab [facility] #: [id number] Patient Type: Ref Lab Taken: 07/06/2021 Received: 07/06/2021 Accessioned:: 07/09/2021 Reported: 07/11/2021 Physician(s): Araseli Sanchez M.D. Diagnosis: Source of Specimen: SCREENING THIN PREP IMAGED PAP w/ HPV Specimen Adequacy: - Satisfactory for evaluation; endocervical/transformation zone component present General Category: - Negative for intraepithelial lesion or malignancy ASHLEY Butcher(ASCP) Report Electronically Reviewed and Signed Out By ASHLEY Butcher(ASCP) 07/11/2021 16:37:49 Addenda: HPV Test Interpretation NEGATIVE for types 16, 18, 31, 33, 35, 39, 45, 51, 52, 56, 58, 59, 66 and 68. Test performed utilizing Gen-Probe Aptima assay. ASHLEY Butcher(ASCP) Report Electronically Reviewed and Signed Out By ASHLEY Butcher(ASCP) 07/10/2021 15:57:42 Specimen(s) Received: A: SCREENING THIN PREP IMAGED PAP w/ HPV Clinical History: Last Menstrual Period: 06/16/2021 Menstrual History: Clinical History: none The Pap test is a screening test used to aid in the detection of cervical cancer and its precursors. It should not be the sole means by which malignant and premalignant lesions are diagnosed. Both false negative and false positive results may occur. It also has poor sensitivity for the detection of endometrial lesions and should not be used to evaluate suspected endometrial abnormalities. For these reasons it is most important to obtain Pap tests at regular intervals. The performance characteristics of some immunohistochemical stains, fluorescence in-situ hybridization tests and immunophenotyping by flow cytometry cited in this report (if any) were determined by the Surgical Pathology Department at [facility] as part of an ongoing quality assurance qa lab analyst program and in compliance with federally mandated regulations drawn from the Clinical Laboratory Improvement Act of 1988 (CLIA '88). Some of these tests rely on the use of analyte specific reagents and are subject to specific labeling requirements by the US Food and Drug Administration. Such diagnostic tests may only be performed in a facility that is certified by the Department of Health and Human Services as a high complexity laboratory under CLIA '88. The FDA has determined that such clearance or approval is not necessary. This test is used for clinical purposes. It should not be regarded as investigational or for research. Nevertheless, federal rules concerning the medical use of analyte specific reagents require that the following disclaimer be attached to the report: This test was developed and its performance characteristics determined by the Surgical Pathology Department [facility]. It has not been cleared or approved by the U. S. Food and Drug Administration. Virginia Carlson MD LAB CYTOLOGY ORDERAB[place] [address] [place] [address] * Colonoscopy (04/25/2020) Anatomical Region Laterality Modality Other Historical Provider ENDOSCOPY PROCEDURES Kaleigh l Result from Last 3 Months or Most Recently Relevant to Health Maintenance Insurance Paydiant ANTHRobin CHOICE BLAKE ACCESS CHOICE Care Teams Title One Kindergarten Teacher Relationship Specialty Start Date End Date Virginia Carlson MD [facility] [address] [facility] [place] [address] PCP - General 09/20/16
--- NOTE | 2025-03-12 20:08 | ED_ITS ---
HPI - Recheck/Abnormal Lab/Rx General Chief Complaint: Recheck/Abnormal Lab/Rx Stated Complaint: htn Time Seen by Provider: 03/12/25 19:19 History of Present Illness HPI narrative: Patient has h/o HTN is on olmesartan and labetalol, went to her doctor's office where they did an EKG, told her that 1 of the waves looked funny, they could not do blood work so sent her to the hospital. She does not have any chest pain or shortness of breath or other symptoms. However while she was waiting in the waiting room, she noticed a tightness in her left shoulder. Related Data Allergies Allergy/AdvReac Type Severity Reaction Status Date / Time Penicillins Allergy Unknown Itching Verified 03/12/25 15:12 Review of Systems 2 Review of Systems: All systems reviewed & are unremarkable except as noted in HPI and below Exam 2 Narrative: EXAMINATION OF ORGAN SYSTEMS/BODY AREAS: Constitutional: Vital signs per nursing GENERAL:[No acute distress, non-toxic appearing.] HEAD: Normal with no signs of head trauma. EYES: EOMI, conjunctiva normal ENT: Hearing grossly intact LUNGS: Nonlabored breathing. HEART: [Regular rate and rhythm] ABD: [Soft], [nontender to palpation] EXT: Normal range of motion SKIN: [No rashes or lesions.] NEURO: [Alert and oriented x 3. No gross focal sensory or strength deficits.] PSYCH: Normal affect Course Vital Signs Vital signs: Vital Signs Temperature 97.6 F 03/12/25 15:09 Pulse Rate 79 03/12/25 15:09 Respiratory Rate 16 03/12/25 15:09 Blood Pressure 152/94 H 03/12/25 15:09 Pulse Oximetry 100 03/12/25 15:09 Oxygen Delivery Room Air 03/12/25 15:09 Temperature 97.6 F 03/12/25 15:09 Pulse Rate 71 03/12/25 22:10 Respiratory Rate 19 03/12/25 22:10 Blood Pressure 152/83 H 03/12/25 22:10 Pulse Oximetry 100 03/12/25 22:10 Oxygen Delivery Room Air 03/12/25 20:10 MDM - Recheck/Abnormal Lab/Rx MDM Narrative Medical decision making narrative: Patient with asymptomatic hypertension. No signs or symptoms of end organ dysfunction; no chest pain or shortness of breath, neurological deficits, severe headaches, visual disturbance, oliguria, or symptoms of dissection/AAA). EKG here on my independent interpretation shows sinus rhythm rate 67, VA 170, QRS 90, QTC 408, no ST elevations depressions or signs of acute ischemia or arrhythmia. Labs obtained here including negative troponin. Chest x-ray on my independent interpretation does not show any obvious consolidation, cardiomegaly, pneumothorax Long-term risks of hypertension, especially uncontrolled, were discussed including increased risks of kidney disease, vascular disease, stroke and heart disease. We discussed lifestyle modifications including diet and exercise. She is already on antihypertensive medications, her blood pressure is stable here, patient expressed understanding of the instructions and strongly advised to follow-up with PMD for further management. Lab Data 03/12/25 20:17 03/12/25 20:17 Labs: Lab Results 03/12/25 Range/Units 20:17 WBC 7.7 (4.5-10.0) K/mm3 RBC 4.92 (4.2-5.4) M/mm3 Hgb 11.1 L (12.0-15.0) g/dL Hct 35.9 L (37.0-47.0) % MCV 73.0 L (80-100) fl MCH 22.6 L (26-34) pg MCHC 30.9 L (32-36) g/dl RDW 18.6 H (11.5-14.5) % Plt Count 245 (150-375) k/mm3 MPV Not Reportable Immature Gran % (Auto) 0.3 (0-0.5) % Neut % (Auto) 58.9 (45.5-73.1) % Lymph % (Auto) 29.4 (18.3-44.2) % Irwin % (Auto) 7.2 (2.6-8.5) % Eos % (Auto) 3.0 (0-4.4) % Baso % (Auto) 1.2 (0.2-1.2) % Lymph # (Auto) 2.25 (0.9-3.2) K/mm3 Irwin # (Auto) 0.6 (0.1-0.6) K/mm3 Eos # (Auto) 0.2 (0-0.3) K/mm3 Baso # (Auto) 0.1 (0.0-0.1) K/mm3 Abs Immat Gran (auto) 0.02 (0.00-0.031) K/mm3 Absolute Neuts (auto) 4.5 (1.3-6.7) K/mm3 Absolute Nucleated RBC 0.000 (0.0-0.012) K/mm3 Band Neutrophils % Not Reportable Nucleated RBC % 0.0 (0.0-0.2) % Platelet Estimate Adequate (Adequate) % Immature Plt Fraction 8.1 (0.9-11.2) % Poikilocytosis 1+ Anisocytosis 1+ Ovalocytes 1+ Schistocytes None seen Sodium 137 (137-145) mmol/L Potassium 4.0 (3.4-5.0) mmol/L Chloride 105 (98-107) mmol/L Carbon Dioxide 24 (22-30) mmol/L Anion Gap 8 (4-12) mmol/L BUN 11 (7-17) mg/dL Creatinine 1.10 H (0.7-1.0) mg/dL Estim Creat Clear Calc 69 ml/min Estimated GFR 52 L (59 - ) Glucose 82 (65-110) mg/dL Calcium 8.9 (8.4-10.2) mg/dL Total Bilirubin 0.4 (0.2-1.3) mg/dL AST 23 (14-36) U/L ALT 21 (6-35) U/L Alkaline Phosphatase 77 (38-126) U/L Troponin I < 0.012 (0.000-0.034) ng/mL Total Protein 7.2 (6.3-8.2) g/dL Albumin 4.1 (3.5-5.1) g/dL Lipase 49 (23-300) U/L Discharge Plan Discharge Clinical Impression: Hypertension Patient Disposition: Home Condition: Stable Instructions: Chronic Hypertension (DC) Additional Instructions: Please follow up with your doctor; your EKG today does appear consistent with hypertension, you can follow-up with your doctor or with a heel boom operator. You can always return for any further issues. Patient Language: Equ[place] Guinean Follow-up/Referrals: Aldo,MD Virginia [Primary Care Provider, Unknown] - 2 Days Prosper Coles MD [Physician, Cardiology] - 2 Days
[2025-03-12 20:10] VITALS: BP 166/87; PULSE 67; RESP 22; O2SAT 100
[2025-03-12 20:11] VITALS: BP 166/87; PULSE 70; RESP 20; O2SAT 100
[2025-03-12 20:24] LABS: Hematocrit 35.9 % (37.0-47.0); Hemoglobin 11.1 g/dL (12.0-15.0); Immature Granulocyte Percent A 0.3 % (0-0.5); Immature Platelet Fraction Pct 8.1 % (0.9-11.2); Lymphocytes Absolute Auto 2.25 K/mm3 (0.9-3.2); Mean Corpuscular HGB Conc 30.9 g/dl (32-36); Mean Corpuscular Hemoglobin 22.6 pg (26-34); Mean Corpuscular Volume 73.0 fl (80-100); Nucleated Red Blood Cells Absolute Auto 0.000 K/mm3 (0.0-0.012); Nucleated Red Blood Cells Perc 0.0 % (0.0-0.2); Platelet Count Result 245 k/mm3 (150-375); Red Blood Count 4.92 M/mm3 (4.2-5.4); White Blood Count 7.7 K/mm3 (4.5-10.0)
[2025-03-12 20:34] LABS: Ovalocytes 1+; Poikilocytosis 1+
[2025-03-12 20:35] LABS: Anisocytosis 1+; Schistocytes None Seen
[2025-03-12 20:46] LABS: Alanine Aminotransferase 21 U/L (6-35); Albumin Level 4.1 g/dL (3.5-5.1); Alkaline Phosphatase 77 U/L (38-126); Anion Gap 8 mmol/L (4-12); Aspartate Amino Transferase 23 U/L (14-36); Bilirubin,Total 0.4 mg/dL (0.2-1.3); Blood Urea Nitrogen 11 mg/dL (7-17); Calcium 8.9 mg/dL (8.4-10.2); Carbon Dioxide 24 mmol/L (22-30); Chloride 105 mmol/L (98-107); Estimated CRCL calculation 69 ml/min; Estimated Glomerular Filt Rate 52; Glucose 82 mg/dL (65-110); Lipase 49 U/L (23-300); Potassium 4.0 mmol/L (3.4-5.0); Sodium 137 mmol/L (137-145); Total Protein 7.2 g/dL (6.3-8.2)
[2025-03-12 20:57] LABS: Troponin I < 0.012 ng/mL (0.000-0.034)
[2025-03-12 22:10] VITALS: BP 152/83; PULSE 71; RESP 19; O2SAT 100
== END 2025-03-12 22:12 | disposition home or self-care (01) ==
PROVIDERS: Emergency Provider Emergency Medicine; PCP Hospitalist
DX: I10 Essential (primary) hypertension (principal); R94.31 Abnormal electrocardiogram [ECG] [EKG]; Z79.899 Other long term (current) drug therapy
CPT/HCPCS: 36415; 71045; 80053; 83690; 84484; 85025; 85055; 93005; 99284

== ENCOUNTER 2025-03-15 23:46 | Emergency (ER) | payer BC, SELFPAY ==
--- OUTSIDE RECORDS SUMMARY | 2020-04-30 05:00 | XMS_ITS | Continuity of Care Document ---
Author Organization [facility] Address [address] [place] [address] Phone Care Team Providers Care Water Superintendent Name Role Phone North Tomlinson MD Unavailable Unavailable Procedures Procedure Date TISSUE EXAM BY PATHOLOGIST COLONOSCOPY, REMOVAL SNARE TECH 020 Advance Directives Directive Yes / No Effective Date File Name No Information Encounters Encounter Description Practice Location Reason(s) For Visit Diagnoses Date Provider Providers Copied on Encounter [facility], [address], [place], [place], [id number], tel:[phone] [facility] No Information Bushra Kat. [address] [place] [address], [id number] , . tel:[phone] [facility], [address], [place], [place], [id number], tel:[phone] [facility] No Information Bushra Kat. [address] [place], [place], [id number] , . tel:[phone] Referring Provider: Florin Red [address] [address], [place], [address]. tel:[phone] [facility], [address], [place], [place], [id number], tel:[phone] [facility] [place] No Information Bushra Kat. [address] [place] [address], [id number] , . tel:[phone] Referring Provider: Wally Red5 [facility] [address], [place], [address]. tel:[phone] Family History Family Member Type Diagnosis Age At Onset No Information Payers Payer name Insurance type Covered republican ID Authoriza tion(s) No Information Social History Type Description Quantity Date Captured Comments Sex Female Smoking Status No Information Chief Complaint And Reason For Visit No Information Reason For Referral Reason For Referral No Information History Of Present Illness Encounter Date Complaint History Of Prese nt Illness No Information Functional Status Date Functional Assessmen t No Information Instructions Date Instruction Additional Infor mation No Information Assessments Type Assessment Date No Information Patient Care Teams Name Effective Dates (start - stop) Status Members No Information
--- OUTSIDE RECORDS SUMMARY | 2025-03-15 23:49 | XMS_ITS | Clinical Summary ---
Author Organization [facility] Address [address] [place] [address] Care Team Providers Care Drop Crew Laborer Name Role Phone Virginia Carlson MD Primary Care Provider [phone] Allergies Active Allergy Reactions Criticality Noted Date [...] day 60 tablet 1 03/08/20 25 Active amLODIPine (NORVASC) 5 mg tablet Take 1 tablet (5 mg total) by mouth daily 30 tablet 4 03/15/20 25 026 Active olmesartan (BENICAR) 40 mg tablet Take 1 tablet (40 mg total) by mouth daily 90 tablet 1 02/18/20 24 025 Discontinued diclofenac sodium (VOLTAREN) 1 % gel Apply 2 g topically 4 (four) times a day 150 g 1 01/15 025 Discontinued(Miguel kirk Reported) labetaloL (NORMODYNE,TRA NDATE) 100 mg tablet Take 1 tablet (100 mg total) by mouth 2 (two) times a day 60 tablet 1 01/12/20 025 Discontinued(Re order) Active Problems Problem Noted [...] 09/09/2023 Assessment & Plan (07/10/2024 2:21 PM MANAGER OF MARKETING): Will continue to monitor. No iron at [...] sweets Assessment & Plan (07/10/2024 2:18 PM MANAGER OF MARKETING): Decrease intake of pasta, potatoes, breads, rice and sweets Assessment & Plan (05/21/2023 9:46 PM MANAGER OF MARKETING): Decrease intake of pasta, potatoes, breads, rice and sweets Assessment & Plan (12/28/2022 3:14 PM CDT): Decrease intake of pasta, potatoes, breads, rice and sweets Assessment & Plan (07/21/2022 9:02 PM MANAGER OF MARKETING): Decrease intake of pasta, potatoes, breads, rice and sweets Infected sebaceous cyst of skin 07/07/2021 Assessment & Plan (07/07/2021 9:53 PM MANAGER OF MARKETING): Continue Bactrim DS twice a day History of vitamin D deficiency 07/07/2021 Assessment & Plan (07/07/2021 10:07 PM MANAGER OF MARKETING): Will check Vitamin d level Neuropathy 07/07/2021 Assessment & Plan (12/28/2022 3:13 PM CDT): Will refer to neurology for right foot numbness and pelvic numbness. Patient may need repeat MRI Assessment & Plan (07/07/2021 10:05 PM MANAGER OF MARKETING): Continue with EMG/Nerve conduction study Internal nasal [...] dehydrated Assessment & Plan (07/10/2024 2:06 PM MANAGER OF MARKETING): Avoid taking NSAIDs -Ibuprofen, Aleve and Naprosyn. Also avoid being dehydrated Assessment & Plan (05/21/2023 9:50 PM MANAGER OF MARKETING): Avoid taking NSAIDs -Ibuprofen, Aleve and Naprosyn. Also avoid being dehydrated Assessment & Plan (07/13/2020 5:31 PM MANAGER OF MARKETING): Last creatinine 1.15 and eGFR 57 on 03/29/2020. Continue with current treatment regimen; avoid NSAIDs and stay hydrated. Continue with good lipid and BP control. Will monitor. Assessment & Plan (04/30/2020 2:17 PM MANAGER OF MARKETING): Last creatinine 07/19 and eGFR 51 on 07/23/2019. Continue with current treatment regimen. Continue with good BP control. Will monitor. Assessment & Plan (12/18/2019 12:40 PM CDT): Talked to patient about decreasing intake of NSAIDS and increase hydration Vitamin D deficiency 12/17/2019 Assessment & Plan (07/10/2024 2:35 PM MANAGER OF MARKETING): Will have patient to check vitamin d level Assessment & Plan (05/21/2023 9:49 PM MANAGER OF MARKETING): Will check Vitamin d level Assessment & [...] negative. Assessment & Plan (06/05/2019 7:11 AM MANAGER OF MARKETING): Follow up with REGULATORY LEADER Mixed hyperlipidemia 06/03/2019 Assessment & Plan (10/27/2024 3:35 PM CDT): Up-to-date with lipid lab monitoring. Continue atorvastatin. Discussed that the timing of this medicine does not matter when it is taken during the day. Assessment & Plan (10/17/2024 4:20 PM CDT): Continue Rosuvastatin 20mg every day Assessment & Plan (07/10/2024 2:10 PM MANAGER OF MARKETING): Continue Rosuvastatin 20mg every day Assessment & Plan (05/21/2023 9:45 PM MANAGER OF MARKETING): Continue Rosuvastatin 20mg QHS Assessment & Plan (12/28/2022 2:59 PM CDT): Continue Rosuvastatin 20mg QHS Assessment & Plan (07/21/2022 8:46 PM MANAGER OF MARKETING): Continue Rosuvastatin 20mg a day Assessment & Plan (07/07/2021 9:50 PM MANAGER OF MARKETING): Continue Rosuvastatin 20mg a day Assessment & Plan (11/09/2020 1:37 PM CDT): Continue current treatment - rosuvastatin 20 mg daily. Encouraged a low cholesterol diet and regular cardiovascular exercise as tolerated. Will continue to monitor. Assessment & Plan (07/13/2020 10:54 AM MANAGER OF MARKETING): Continue current treatment - rosuvastatin 20 mg [...] therapy Assessment & Plan (06/03/2019 6:21 PM MANAGER OF MARKETING): Start Crestor 20 mg. Encouraged a low cholesterol diet and regular cardiovascular exercise as tolerated. Will recheck labs. Will continue to monitor. PCOS (polycystic ovarian syndrome) 06/03/2019 Assessment & Plan (06/03/2019 2:00 PM MANAGER OF MARKETING): Stable. Continue current management. Continue to follow [...] day. Assessment & Plan (07/10/2024 2:13 PM MANAGER OF MARKETING): Take Labetalol 100mg one tablet BID and Olmesartan 40mg every day. Repeat was 130/86. Will adjust medication at next appointment if still elevated. Assessment & Plan (05/21/2023 9:44 PM MANAGER OF MARKETING): Take Labetalol 100mg one tablet BID Assessment & Plan (12/28/2022 2:58 PM CDT): Continue Labetalol 100mg one tablet BID and Olmesartan 40mg a day Assessment & Plan (07/21/2022 8:45 PM MANAGER OF MARKETING): Continue Labetalol 100mg one tablet BID and Olmesartan 40mg a day Assessment & Plan (07/07/2021 9:51 PM MANAGER OF MARKETING): Continue Labetalol 100mg Twice a day. Assessment [...] monitor. Assessment & Plan (07/13/2020 5:34 PM MANAGER OF MARKETING): BP today is 100/80. Continue current treatment [...] therapy Assessment & Plan (06/03/2019 6:26 PM MANAGER OF MARKETING): BP today 131/85; repeat at exam 104/80. Hold Clonidine 0.1 mg, and Labetalol 200 mg; continue taking Olmesartan 20 mg and HCTZ 25 mg. Check BP twice daily. If it trends upwards, call the office and restart medications. Encourage low-sodium diet and regular exercise. Will monitor. Bilateral carpal tunnel syndrome 06/03/2019 Assessment & Plan (06/03/2019 6:23 PM MANAGER OF MARKETING): Start using bilateral cock-up splints at night. Will monitor. Menopause ovarian failure 05/15/2016 Dysmenorrhea 05/15/2016 Resolved Problems Problem Noted Date Diagnosed Date Resolved Date Cervical lymphadenopathy 10/27/202412/2024 Numbness of toes 07/10/2024 10/27/2024 Assessment & Plan (07/10/2024 2:35 PM MANAGER OF MARKETING): Will have patient to see neurology Acute bilateral ankle pain 07/10/2024 0 10/27/2024 Assessment & Plan (07/10/2024 2:36 PM MANAGER OF MARKETING): Will refer patient to orthopaedics BMI 40.0-44.9, adult 12/28/2022 025 Assessment & Plan (05/21/2023 9:39 PM MANAGER OF MARKETING): Decrease intake and increase activity Assessment & Plan (12/28/2022 2:55 PM CDT): Decrease intake and increase activity Morbid obesity with BMI of 40.0-44.9, adult 07/21/2022 10/27/2024 Assessment & Plan (10/17/2024 4:28 PM CDT): Patient to decrease intake and increase activity Assessment & Plan (05/21/2023 9:40 PM MANAGER OF MARKETING): Decrease intake and increase activity Assessment & Plan (12/28/2022 2:53 PM CDT): Decrease intake and increase activity Assessment & Plan (07/21/2022 8:44 PM MANAGER OF MARKETING): Decrease intake and increase activity Body mass index 40.0-44.9, adult ([facility]) 07/12/2022 10/27/2024 Assessment & Plan (10/17/2024 4:28 PM CDT): Paient to decrease intake and increase activity Assessment & Plan (07/21/2022 8:43 PM MANAGER OF MARKETING): Decrease intake and increase activity Routine medical exam 07/07/2021 025 Assessment & Plan (07/07/2021 9:49 PM MANAGER OF MARKETING): Will obtain labs Vaginal irritation 07/13/2020 Assessment & Plan (12/28/2022 3:17 PM CDT): Follow up with REGULATORY LEADER. Start Diflucan 150mg a day Assessment & Plan (07/13/2020 5:30 PM MANAGER OF MARKETING): Patient to use non-perfumed soap; recommended Basis [...] 10/27/2024 Assessment & Plan (07/10/2024 2:37 PM MANAGER OF MARKETING): Will check BNP level Assessment & Plan (06/03/2019 2:03 PM MANAGER OF MARKETING): Patient has been stable. Continue current treatment with compression, elevation, HCTZ 25 mg, and limiting sodium intake. Will continue to monitor Acute non-recurrent frontal sinusitis 06/03/2019 10/27/2024 Assessment & Plan (06/03/2019 6:18 PM MANAGER OF MARKETING): Continue Coricidin as directed for symptoms. If they do not resolve in the next 2 weeks, call the office. Will monitor. Benign hypertension 11/06/2013 10/28/19 Overview (09/27/2016): BENIGN HYPERTENSION Encounters Date Type Department Care Team Description 03/15/2025 Nurse Triage [facility] at [facility] - [address] [place] [phone] Virginia Carlson MD 03/15/2025 Orders Only [facility] at [facility] - [address] [place] [phone] Virginia Carlson MD 03/15/2025 Nurse Triage [facility] Care at [facility] - [address] [place] [phone] Rylie Wild RN 03/12/2025 9:30 AM CDT Office Visit [facility] [address] [phone] Sofy Titus NP Elevated blood pressure reading in office with diagnosis of hypertension (Primary Dx); Other chest pain; Abnormal EKG 03/12/2025 Nurse Triage [facility] Care at [facility] - [address] [place] [phone] Virginia Carlson MD 03/07/2025 3:30 PM CDT Office Visit [facility] Care at [facility] - [address] [place] [phone] Virginia Carlson MD Mixed hyperlipidemia (Primary Dx); Hypertension, renal [...] for infertility by Dr. De Jesus at [place]. HYSTEROSCOPY 11/20/2017 With D&C and endometrial polypectomy (path report not available) by Dr. De Jesus at [facility] DIAGNOSTIC LAPAROSCOPY 11/20/2017 For dyspareunia and infertility.Peritoneal biopsies for possible endometriosis (path not available).Tubes blocked but open on HSG 01/2018. Medical History Medical History Date Comments Hypertension Diabetes mellitus Asthma 1993; no longer an issue Family History Medical History Relation Name Comments Hypertension Brother Herbert Salcidois, Jr. Hypertens ion; Hypertension Father Herbert Flores, Sr. Kidney disease Father Herbert Flores, Sr. Kidney failure Father Herbert Flores, Sr. Renal f ailure; Cause of : Renal failure Arthritis Mother Talya Flores Hypertension Mother Talya Flores Hypertension ; Hypertension Sister Maricruz Flores Relation Name Status Comments Brother Herbert Flores, Jr. Father Herbert Flores, Sr. Mother Talya Flores [...] you are drinking? 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 [employer] Not on file [...] Read Routine (OP Routine) 07/06/2024 3:50 PM MANAGER OF MARKETING Encounter for screening mammogram for malignant neoplasm of breast PAP AND HIGH RISK HPV, REFLEX TO GENOTYPING Routine 07/06/2021 12:18 PM MANAGER OF MARKETING Cervical cancer screening COLONOSCOPY Routine 04/25/2020 from [...] LAB MICROBIOLOGY - GENERAL ORDERABLES Final Result S[facility] [address] [facility] Department [place] [address] * Screening Mammogram Bilateral W Kwame (07/06/2024 3:50 PM MANAGER OF MARKETING) Anatomical Region Laterality Modality Breast Bilateral Mammography 07/07/2024 10:1 6 AM MANAGER OF MARKETING Impressions 07/07/2024 10:16 AM MANAGER OF MARKETING No evidence of malignancy in either breast. FINAL ASSESSMENT: BI-RADS Category 1: Negative. RECOMMENDATION: Recommend return for annual screening mammogram in 12 months. Electronically signed by: Violet Brush M.D. Narrative 07/07/2024 10:16 AM MANAGER OF MARKETING EXAMINATION: BILATERAL SCREENING MAMMOGRAM COMPARISON: Prior mammograms [...] HPV, reflex to Genotyping (07/06/2021 12:18 PM MANAGER OF MARKETING) Swab (Pap test) 07/06/2021 1 2:18 PM MANAGER OF MARKETING 07/06/2021 12:18 PM MANAGER OF MARKETING Narrative PATHOLOGY CH - 07/11/2021 4:37 PM MANAGER OF MARKETING [facility] Department of Pathology [address] [place] [address] Final Report with Addendum Note to Patients: [...] the details. Patient Name: PATT BARNEY Address: [address] [place] [address] [place] [address] Gender: F : 1975 (Age: 46) Service: Laboratory Location: Lab [facility] #: [id number] Patient Type: [facility] Lab Taken: 07/06/2021 Received: 07/06/2021 Accessioned:: 07/09/2021 [...] Report Electronically Reviewed and Signed Out By PRADIP ButcherASCP) 07/10/2021 15:57:42 Specimen(s) Received: A: SCREENING THIN [...] determined by the Surgical Pathology Department at [facility] as part of an ongoing quality control inspector heading program and in compliance with federally mandated [...] characteristics determined by the Surgical Pathology Department [facility]. It has not been cleared or approved by the U. S. Food and Drug Administration. Virginia Carlson MD LAB CYTOLOGY ORDERABLES Fi nal Result PATHOLOGY [address] [id number] * Colonoscopy (04/25/2020) Anatomical Region Laterality Modality Other Historical Provider ENDOSCOPY PROCEDURES Kaleigh l Result from Last 3 Months or Most Recently Relevant to Health Maintenance Insurance [facility] ANTHEM ACCESS CHOICE Care Teams Drop Crew Laborer Relationship Specialty Start Date End Date Virginia Carlson MD [facility] [address] [id number] PCP - General 09/20/16
--- OUTSIDE RECORDS SUMMARY | 2025-03-15 23:49 | XMS_ITS | Clinical Summary ---
Author Organization [facility] Address [address] [place] [address] Phone Care Team Providers Care Shellfish Processing Machine Tender Name Role Phone Virginia Carlson MD Primary Care Provider [phone]- [phone] Allergies Active Allergy Reactions Criticality Noted Date [...] Plan of Treatment Not on file Insurance [facility] Care Teams Shellfish Processing Machine Tender Relationship Specialty Start Date End Date Virginia Carlson MD [facility] [address] [id number] PCP - General Internal Medicine 09/11/17
--- OUTSIDE RECORDS SUMMARY | 2025-03-15 23:49 | XMS_ITS | Clinical Summary ---
Author Organization [facility] Address [address] [place] [address] Phone Care Team Providers Care Loss Prevention Supervisor Name Role Phone Virginia Carlson MD Primary Care Provider [phone] Allergies Active Allergy Reactions Criticality Noted Date [...] Comments Blood Pressure 120/82 05/27/2022 1:09 PM GENERATOR OPERATOR Pulse - - Temperature - - Respiratory Rate - - Oxygen Saturation - - Inhaled Oxygen Concentration - - Weight 118.8 kg (261 lb 12.8 oz) 05/27/2022 1:09 PM GENERATOR OPERATOR Height 160 cm (5' 3) 05/27/2022 1:09 PM GENERATOR OPERATOR Body Mass Index 46.38 05/27/2022 1:09 PM GENERATOR OPERATOR Plan of Treatment Health Maintenance Due Date [...] d or Tdap) 03/04/2029 03/04/2019, 01/27/2004 Insurance [facility] BLUE ACCESS CHOICE Care Teams Loss Prevention Supervisor Relationship Specialty Start Date End Date Virginia Carlson MD [facility] [address] [facility] [address], [place] [address] PCP - General Internal Medicine 01/21/22
--- OUTSIDE RECORDS SUMMARY | 2025-03-15 23:49 | XMS_ITS | Encounter Summary ---
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 Patient to call in two weeks with blood pressure readings. * Telephone Encounter - Emilie Burroughs - 03/15/2025 2:42 PM CDT Call Back Caller???s Concern: Patient called back. She is wanting to speak with Dr Carlson directly. Does message need to be routed? Yes-Action Needed * Telephone Encounter - Rylie Wild RN - 03/15/2025 1:16 PM CDT Reason for Conversation Hypertension Background 2 attempts to call patient. No voicemail available. Phone number verified. Disposition No Contact Calls Reason for Disposition Second attempt to contact caller AND no contact made. Phone number verified. No Initial Assessment on file. No Additional Information on file. Protocols Used No Contact or Duplicate Contact [id number] * Telephone Encounter - Genesis Londono RN - 03/15/2025 12:59 PM CDT Regarding: elevated blood pressure high last BP reading was 177/100 taken this morning 6:30am off feeling off ----- Message from Chari North sent at 03/15/2025 12:44 PM CDT ----- Symptom Based Call Chief Complaint(s): elevated blood pressure high last BP reading was 177/100 taken this morning 6:30am off feeling off, no other symptoms Duration: last Friday What type of symptom(s) is the patient experiencing? Non-Emergent. Is this a new or reoccurring symptom(s)? new What have you tried to help your symptom(s)? Taking her medication in the morning and in the evening and watching what's she's eating, drinking more water Why was appointment not scheduled? Requesting advice from clinical count team clerk. Additional Comments: Patient called stating her BP elevated and she may need a medication change, patient stated she was seen in our office on 03/07/25 and seen at on 03/12/25 for BP, please advise. Does message need to be routed? Yes-Action Needed documented in this encounter Plan of Treatment Not on file documented as of this encounter Visit Diagnoses Not on filedocumented in this encounter Care Teams Fruit Farmworker Relationship Specialty Start Date End Date Virginia Carlson MD [address] [facility] [address], [place] [address] PCP - General 09/20/16 documented as of this encounter
--- OUTSIDE RECORDS SUMMARY | 2025-03-15 23:49 | XMS_ITS | Encounter Summary ---
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 Background Patt Cortez reports she spoke with Dr. Carlson earlier today regarding increased BP. Dr. Carlsonadded amlodipine 5 mg to medications. Pt took amlodipine tonight and labetalol at 1800. BP continues to increase, BPs tonight were: 177/104, 190/114, 201/114, and now is 204/121. Pt denies CP or SOB.Denies headache, dizziness/light headedness, denies numbness or weakness. 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 Pt is agreeable to plan. FYI sent to clinical group. CALL BACK IF: * Weakness or numbness of the face, arm or leg on one side of the body occurs * Difficulty walking, difficulty talking, or severe headache occurs * Chest pain or difficulty breathing occurs * You become worse Disposition See Physician Within 4 Hours (or PCP Triage) Reason for Disposition [1] Systolic BP >= 200 OR Diastolic >= 120 AND [2] having NO cardiac or neurologic symptoms No Initial Assessment on file. No Additional Information on file. Protocols Used Blood Pressure - [id number] * Telephone Encounter - Kayleen Rosales RN - 03/15/2025 10:58 PM CDT Regarding: high BP 204/121 ----- Message from Bhavna Olguin sent at 03/15/2025 10:57 PM CDT ----- Chief Complaint: high BP 204/121 Duration: tonight Call Back Number: [phone] Additional Details: documented in this encounter Plan of Treatment Not on file documented as of this encounter Visit Diagnoses Not on filedocumented in this encounter Care Teams Mushroom Packer Relationship Specialty Start Date End Date Virginia Carlson MD [address] [facility] [address] [place] [address] PCP - General 09/20/16 documented as of this encounter
--- OUTSIDE RECORDS SUMMARY | 2025-03-15 23:49 | XMS_ITS | Encounter Summary ---
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 Gender Identity Not on file Sexual Orientation Not on file Occupation Industry Job Start Date Job End Date 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 [employer] Not on file Not o n file Not on file documented as of this encounter Ordered Prescriptions Prescription Sig Dispense Quantity Refills Last Filled Start Date End Date amLODIPine (NORVASC) 5 mg tablet Take 1 tablet (5 mg total) by mouth daily 30 tablet 4 03/15/2025 03/15/2026 documented in this encounter Plan of Treatment Not on file documented as of this encounter Visit Diagnoses Not on filedocumented in this encounter Care Teams Program Services Assistant Relationship Specialty Start Date End Date Virginia Carlson MD [facility] [facility] [address] [place] [address] PCP - General 09/20/16 documented as of this encounter
[2025-03-15 23:51] VITALS: BP 184/109; PULSE 79; RESP 16; TEMP 36.8; O2SAT 100
[2025-03-16 01:18] VITALS: RESP 18; O2SAT 100
[2025-03-16 01:20] VITALS: BP 147/104; PULSE 79; RESP 18; O2SAT 100
[2025-03-16 02:25] VITALS: BP 127/69; PULSE 63; RESP 18; O2SAT 100
--- NOTE | 2025-03-16 03:08 | ED_ITS ---
HPI - General Adult General Chief complaint: Unspecified Stated complaint: just want my blood pressure checked Time Seen by Provider: 03/16/25 02:09 History of Present Illness HPI narrative: 49-year-old female with history of chronic uncontrolled hypertension presenting to the emergency department for elevated blood pressure readings and numbers at home. She has no symptoms. States she was recently started on amlodipine today and took her 1st dose. She did not have any significant improvement her blood pressure and notes elevated blood pressure readings at home. She denies any symptoms. No headache, vision change, chest pain, shortness a breath, stroke- like symptoms, losing consciousness or any other issues. She just wants to get evaluated because her blood pressure numbers were high at home. She has an upcoming PCP follow-up appointment in 2 weeks to discuss further medication titration with her current regimen including coreg, olmesartan and recently started amlodipine today. Related Data Allergies Allergy/AdvReac Type Severity Reaction Status Date / Time Penicillins Allergy Unknown Itching Verified 03/15/25 23:47 Review of Systems Review of Systems: As reviewed above in HPI Exam Narrative: GENERAL: [Well-appearing, well-nourished, and in no acute distress.] HEAD: [Normocephalic, atraumatic.] EYES: [PERRLA and EOMI.] ENT: Nares clear, no rhinorrhea or epistaxis. Mucous membranes moist. NECK: Supple. CHEST: [Clear to auscultation. No respiratory distress.] HEART: [Regular rate and rhythm]. No murmur heard. [Normal peripheral pulses.] ABDOMEN: [Soft, nondistended], [nontender], [No rigidity or guarding] EXTREMITIES: Normal range of motion. [No edema.] SKIN: Warm, dry, no rash. NEURO: [No focal deficits]. Alert and oriented [x3.] PSYCH: [Normal mood and affect.] Course Vital Signs Vital signs: Vital Signs Temperature 36.8 C 03/15/25 23:51 Pulse Rate 79 03/15/25 23:51 Respiratory Rate 16 03/15/25 23:51 Blood Pressure 184/109 H 03/15/25 23:51 Pulse Oximetry 100 03/15/25 23:51 Oxygen Delivery Room Air 03/15/25 23:51 Temperature 36.8 C 03/15/25 23:51 Pulse Rate 63 03/16/25 02:25 Respiratory Rate 18 03/16/25 02:25 Blood Pressure 127/69 03/16/25 02:25 Pulse Oximetry 100 03/16/25 02:25 Oxygen Delivery Room Air 03/15/25 23:51 Medical Decision Making MDM Narrative Medical decision making narrative: 49-year-old female with history of chronic uncontrolled hypertension presenting to the emergency department for elevated blood pressure readings and numbers at home. She has no symptoms. States she was recently started on amlodipine today and took her 1st dose. She did not have any significant improvement her blood pressure and notes elevated blood pressure readings at home. She denies any symptoms. No headache, vision change, chest pain, shortness a breath, stroke- like symptoms, losing consciousness or any other issues. She just wants to get evaluated because her blood pressure numbers were high at home. She has an upcoming PCP follow-up appointment in 2 weeks to discuss further medication titration with her current regimen including coreg, olmesartan and recently started amlodipine today. Patient is overall asymptomatic and has reassuring physical exam. Blood pressure mildly elevated but not significant or emergent range. No tachycardia, fever, hypoxemia. She has no symptoms at this time and chronically elevated blood pressure that her primary care provider is currently titrating medications with. We counseled her on blood pressure monitoring and therapeutic effect and timeline of amlodipine dosing. We gave her strict return precautions and given her rather unremarkable workup just several days ago with cardiac assessments, EKG, troponin and labs do not feel strongly about repeating them at this time especially with no symptoms. Patient comfortable with the plan for outpatient follow-up which urine he has an appointment her PCP to discuss. We discussed blood pressure diary and return precautions which she verbalized understanding. Medical Records Medical records reviewed: Yes I reviewed the external patient's medical records. Vital Signs Vital Signs: Vital Signs Temperature 36.8 C 03/15/25 23:51 Pulse Rate 79 03/15/25 23:51 Respiratory Rate 16 03/15/25 23:51 Blood Pressure 184/109 H 03/15/25 23:51 Pulse Oximetry 100 03/15/25 23:51 Oxygen Delivery Room Air 03/15/25 23:51 Temperature 36.8 C 03/15/25 23:51 Pulse Rate 63 03/16/25 02:25 Respiratory Rate 18 03/16/25 02:25 Blood Pressure 127/69 03/16/25 02:25 Pulse Oximetry 100 03/16/25 02:25 Oxygen Delivery Room Air 03/15/25 23:51 Lab Data Lab results reviewed: Yes I reviewed the patient's lab results. Discharge Plan Discharge Clinical Impression: Asymptomatic hypertension Patient Disposition: Home Condition: Stable Instructions: Antibiotic Form, Chronic Hypertension (DC) Additional Instructions: Your blood pressure today is not acutely concerning and you have no symptoms. You started a blood pressure medicine this morning that takes approximately 7 days to reach therapeutic effect. Keep a blood pressure diary at home and take the blood pressure after remaining stationary and a mobile for approximately 15 minutes and take blood pressure the same time each day for appropriate trending. Take the prescribed medications and talk to her family doctor about any medication changes further. If you start developing crushing chest pain, difficulty breathing, stroke-like symptoms, passing out or losing consciousness or any other urgent or emergent concerns return to the ER otherwise follow-up with regular care providers. Patient Language: Mauritian Follow-up/Referrals: Aldo,MD Virginia [Primary Care Provider, Unknown] Time of Disposition: 03:07
== END 2025-03-16 03:21 | disposition home or self-care (01) ==
PROVIDERS: Emergency Provider Student in an Organized Health Care Education/Training Program; PCP Hospitalist
DX: I10 Essential (primary) hypertension (principal)
CPT/HCPCS: 99281